=== PATIENT | female | born 1950 | race Caucasian/White ===

== ENCOUNTER 2019-11-05 11:48 | Inpatient (IN) | payer MEDICARE, OTHER ==
[~2019-11-05] VITALS: Ht 160 cm; Wt 61.8 kg
--- NOTE | 2019-11-05 12:30 | NUR ---
SPOKE WITH PT'S DTR OVER THE PHONE. SHE IS UNABLE TO PROVIDE A FULL HISTORY FOR THE PT STATING SHE WENT AND PICKED UP HER MOTHER IN [place] 10 MONTHS AGO BECAUSE SHE WAS UNABLE TO TAKE CARE OF HERSELF. DTR STATE'S PT HAS NOT HAD A DRINK IN 10 MONTHS. PT WAS A DAILY RUM DRINKER FOR DECADES. PT POSSIBLY WITH DIABETES. PT TAKING UNKNOWN BP MEDICATION. PT WAS AMBULATORY APPROX A MONTH AGO. PT HAS HAD MULTIPLE FALLS IN THE LAST COUPLE MONTHS PROMPTING DTR TO BUY WHEELCHAIR FOR PT. PT NEEDS ASSISTANCE WITH ALL ADL'S. PT SEEN TWICE AT [facility] IN THE PAST 3 WKS. PER DTR PT DC'D WITH PAIN RX FOR BACK PAIN.
[2019-11-05] MEDS ORDERED: SODIUM CHLORIDE FLUSH 10ML SYR IVF ONE (13:00)
[2019-11-05] MEDS ORDERED: PLEASE ENTER ALLERGIES MC SCH (13:00)
[2019-11-05 13:03] LABS: BASOPHILS # (AUTO) 0.04 x10^3/uL (0-0.1); BASOPHILS % (AUTO) 0 % (0-1); EOSINOPHILS # (AUTO) 0.11 x10^3/uL (0-0.4); EOSINOPHILS % (AUTO) 1 % (1-7); LYMPHOCYTES # (AUTO) 2.49 x10^3/uL (1-3.4); LYMPHOCYTES % (AUTO) 22 % (22-44); MD NO; MEAN CORPUSCULAR HEMOGLOBIN 29.4 pg (27.0-34.8); MEAN CORPUSCULAR HGB CONC 31.8 g/dL (32.4-35.8); MEAN CORPUSCULAR VOLUME 92.6 fL (80-100); MEAN PLATELET VOLUME 9.2 fL (7.4-10.4); MONOCYTES # (AUTO) 0.66 x10^3/uL (0.2-0.8); MONOCYTES % (AUTO) 6 % (2-9); NEUTROPHILS # (AUTO) 8.07 x10^3/uL (1.8-6.8); NEUTROPHILS % (AUTO) 71 % (42-75); PLATELET COUNT 224 x10^3/uL (130-400); RED BLOOD COUNT 4.74 x10^6/uL (3.82-5.3); RED CELL DISTRIBUTION WIDTH 14.9 % (9.6-15.2)
[2019-11-05 13:12] LABS: ALANINE AMINOTRANSFERASE 20 U/L (12-78); ALBUMIN 3.1 g/dL (3.4-5.0); ANION GAP 8 mmol/L (5-15); CALCIUM 9.1 mg/dL (8.5-10.1); CHLORIDE 114 mmol/L (98-107); CREATININE 0.83 mg/dL (0.55-1.02)
[2019-11-05 13:23] LABS: ALKALINE PHOSPHATASE 86 U/L (45-117); BILIRUBIN,TOTAL 0.5 mg/dL (0.2-1.0); TOTAL PROTEIN 7.1 g/dL (6.4-8.2)
--- NOTE | 2019-11-05 13:58 | NUR ---
PT INCONTINENT OF STOOL AND URINE. PT CLEANED, BARRIER PASTE APPLIED TO KINA AREA. PUREWICK PLACED FOR PT COMFORT. LINENS CHANGED WITH FAMILY ASSIST.
[2019-11-05] MEDS ORDERED: LEVETIRACETAM 500 MG in SODIUM CHLORIDE 0.9% 100 ML IV SCH ×2 (14:15→17:30)
[2019-11-05] MEDS ORDERED: DEXAMETHASONE 4 MG/ML, 1ML IVPush ONE ×2 (14:15→14:17)
[2019-11-05] MEDS ORDERED: DEXAMETHASONE 4 MG/ML, 1ML ONE (14:27)
[2019-11-05] MEDS ORDERED: LORazepam 2 MG/ML, 1ML ONE (14:28)
[2019-11-05] MEDS ORDERED: LORazepam 2 MG/ML, 1ML IVPush ONE (14:30)
[2019-11-05] MEDS ORDERED: GADOTERATE 7.5 MMOL/15 ML SYR ONE (15:11)
--- NOTE | 2019-11-05 15:30 | NUR ---
DTR AT BEDSIDE. NO ADDITIONAL MEDICAL HX NOTED FROM OUR EARLIER TELE CALL.
[2019-11-05] MEDS ORDERED: SODIUM CHLORIDE FLUSH 10ML SYR IVF PRN (16:30)
[2019-11-05 16:37] LABS: INTERNATIONAL NORMALIZED RATIO 0.98 (0.93-1.1); PROTHROMBIN TIME 10.1 Seconds (9.6-11.5)
[2019-11-05] MEDS ORDERED: D5%-0.45NACL+KCL 20MEQ 1,000 ML IV SCH (16:49)
[2019-11-05] MEDS ORDERED: LABETALOL 5MG/ML, 20ML IVPush PRN (17:00)
[2019-11-05] MEDS ORDERED: ENALAPRILAT 1.25 MG/ML, 2ML IVPush PRN (17:00)
[2019-11-05] MEDS ORDERED: METOCLOPRAMIDE 5 MG/ML, 2ML IVPush PRN (17:00)
[2019-11-05] MEDS ORDERED: ONDANSETRON 2MG/ML, 2ML IVPush PRN (17:00)
[2019-11-05] MEDS ORDERED: PROMETHAZINE 25 MG/ML, 1ML IM PRN (17:00)
[2019-11-05] MEDS ORDERED: MAGNESIUM SULFATE PMX 2GM/50ML 50 ML IV ONE (17:30)
[2019-11-05] MEDS: DEXAMETHASONE 4 MG/ML, 1ML IVPush SCH ×2 (18:29→23:55)
[2019-11-05] MEDS ORDERED: DEXAMETHASONE 4 MG/ML, 1ML IVPush SCH (20:30)
[2019-11-06] MEDS ORDERED: LEVETIRACETAM 500 MG in SODIUM CHLORIDE 0.9% 100 ML IV SCH (04:00)
[2019-11-06 04:41] LABS: ALBUMIN 3.3 g/dL (3.4-5.0); ANION GAP 7 mmol/L (5-15); CALCIUM 9.2 mg/dL (8.5-10.1); CHLORIDE 114 mmol/L (98-107)
[2019-11-06 04:46] LABS: ALANINE AMINOTRANSFERASE 20 U/L (12-78); ALKALINE PHOSPHATASE 89 U/L (45-117); BILIRUBIN,TOTAL 0.3 mg/dL (0.2-1.0); CREATININE 0.81 mg/dL (0.55-1.02); TOTAL PROTEIN 7.5 g/dL (6.4-8.2)
[2019-11-06] MEDS: DEXAMETHASONE 4 MG/ML, 1ML IVPush SCH (05:37)
[2019-11-06 06:25] LABS: BASOPHILS % (AUTO) 0 % (0-1); EOSINOPHILS % (AUTO) 0 % (1-7); LYMPHOCYTES # (AUTO) 1.39 x10^3/uL (1-3.4); LYMPHOCYTES % (AUTO) 15 % (22-44); MD NO; MEAN CORPUSCULAR HEMOGLOBIN 29.6 pg (27.0-34.8); MEAN CORPUSCULAR VOLUME 92.7 fL (80-100); MEAN PLATELET VOLUME 9.3 fL (7.4-10.4); MONOCYTES % (AUTO) 1 % (2-9); NEUTROPHILS % (AUTO) 83 % (42-75); PLATELET COUNT 191 x10^3/uL (130-400); RED BLOOD COUNT 4.81 x10^6/uL (3.82-5.3); RED CELL DISTRIBUTION WIDTH 14.8 % (9.6-15.2)
[2019-11-06] MEDS: THIAMINE 100MG TABLET PO SCH ×2 (09:22→21:33)
[2019-11-06] MEDS: DEXAMETHASONE 4 MG TABLET PO SCH ×2 (11:59→17:17)
[2019-11-06] MEDS: LEVETIRACETAM 500 MG TABLET PO SCH (16:08)
[2019-11-06 21:39] VITALS: BP 107/61
[2019-11-07 02:05] VITALS: BP 112/53
[2019-11-07 04:36] LABS: BASOPHILS # (AUTO) 0.02 x10^3/uL (0-0.1); BASOPHILS % (AUTO) 0 % (0-1); EOSINOPHILS % (AUTO) 0 % (1-7); LYMPHOCYTES # (AUTO) 1.38 x10^3/uL (1-3.4); LYMPHOCYTES % (AUTO) 10 % (22-44); MD NO; MEAN CORPUSCULAR VOLUME 90.9 fL (80-100); MEAN PLATELET VOLUME 9.6 fL (7.4-10.4); MONOCYTES # (AUTO) 0.22 x10^3/uL (0.2-0.8); MONOCYTES % (AUTO) 2 % (2-9); NEUTROPHILS # (AUTO) 11.69 x10^3/uL (1.8-6.8); NEUTROPHILS % (AUTO) 88 % (42-75); PLATELET COUNT 208 x10^3/uL (130-400); RED CELL DISTRIBUTION WIDTH 14.6 % (9.6-15.2)
[2019-11-07 04:46] LABS: ANION GAP 4 mmol/L (5-15); CALCIUM 8.7 mg/dL (8.5-10.1); CHLORIDE 109 mmol/L (98-107); CREATININE 0.74 mg/dL (0.55-1.02)
[2019-11-07] MEDS: LEVETIRACETAM 500 MG TABLET PO SCH ×2 (05:04→15:46)
[2019-11-07] MEDS: DEXAMETHASONE 4 MG TABLET PO SCH ×5 (06:37→23:23)
[2019-11-07 08:00] VITALS: BP 101/47
[2019-11-07] MEDS: THIAMINE 100MG TABLET PO SCH ×2 (09:50→20:07)
[2019-11-07 13:31] VITALS: BP 107/61
[2019-11-07 16:14] VITALS: BP 119/79
[2019-11-07 18:33] VITALS: BP 120/80
[2019-11-08 01:31] VITALS: BP 133/80
[2019-11-08] MEDS: LEVETIRACETAM 500 MG TABLET PO SCH ×2 (04:44→15:00)
[2019-11-08] MEDS: DEXAMETHASONE 4 MG TABLET PO SCH ×4 (04:46→23:43)
[2019-11-08 05:34] LABS: ANION GAP 7 mmol/L (5-15); CALCIUM 8.9 mg/dL (8.5-10.1); CHLORIDE 111 mmol/L (98-107); CREATININE 0.68 mg/dL (0.55-1.02)
[2019-11-08 05:42] LABS: BASOPHILS # (AUTO) 0.02 x10^3/uL (0-0.1); BASOPHILS % (AUTO) 0 % (0-1); EOSINOPHILS % (AUTO) 0 % (1-7); LYMPHOCYTES # (AUTO) 1.42 x10^3/uL (1-3.4); LYMPHOCYTES % (AUTO) 13 % (22-44); MD NO; MEAN CORPUSCULAR HEMOGLOBIN 29.6 pg (27.0-34.8); MEAN CORPUSCULAR HGB CONC 32.4 g/dL (32.4-35.8); MEAN CORPUSCULAR VOLUME 91.4 fL (80-100); MEAN PLATELET VOLUME 9.6 fL (7.4-10.4); MONOCYTES % (AUTO) 2 % (2-9); NEUTROPHILS # (AUTO) 8.96 x10^3/uL (1.8-6.8); NEUTROPHILS % (AUTO) 85 % (42-75); PLATELET COUNT 223 x10^3/uL (130-400); RED BLOOD COUNT 4.72 x10^6/uL (3.82-5.3); RED CELL DISTRIBUTION WIDTH 14.4 % (9.6-15.2)
[2019-11-08 06:53] VITALS: BP 114/70
[2019-11-08] MEDS: THIAMINE 100MG TABLET PO SCH ×2 (07:46→20:36)
[2019-11-08 12:04] VITALS: BP 114/77
[2019-11-08 18:35] VITALS: BP 126/74
[2019-11-09 01:19] VITALS: BP 117/71
[2019-11-09 05:05] LABS: BASOPHILS % (AUTO) 0 % (0-1); EOSINOPHILS % (AUTO) 0 % (1-7); LYMPHOCYTES # (AUTO) 1.71 x10^3/uL (1-3.4); LYMPHOCYTES % (AUTO) 15 % (22-44); MD NO; MEAN CORPUSCULAR HEMOGLOBIN 29.7 pg (27.0-34.8); MEAN CORPUSCULAR HGB CONC 32.6 g/dL (32.4-35.8); MEAN CORPUSCULAR VOLUME 91.2 fL (80-100); MEAN PLATELET VOLUME 9.8 fL (7.4-10.4); MONOCYTES # (AUTO) 0.38 x10^3/uL (0.2-0.8); MONOCYTES % (AUTO) 3 % (2-9); NEUTROPHILS # (AUTO) 9.21 x10^3/uL (1.8-6.8); NEUTROPHILS % (AUTO) 82 % (42-75); PLATELET COUNT 235 x10^3/uL (130-400); RED BLOOD COUNT 5.12 x10^6/uL (3.82-5.3); RED CELL DISTRIBUTION WIDTH 14.6 % (9.6-15.2)
[2019-11-09 05:09] LABS: ALANINE AMINOTRANSFERASE 22 U/L (12-78); ALBUMIN 3.4 g/dL (3.4-5.0); ANION GAP 7 mmol/L (5-15); CALCIUM 9.4 mg/dL (8.5-10.1); CHLORIDE 109 mmol/L (98-107)
[2019-11-09 05:12] LABS: ALKALINE PHOSPHATASE 81 U/L (45-117); BILIRUBIN,TOTAL 0.5 mg/dL (0.2-1.0); CREATININE 0.74 mg/dL (0.55-1.02); TOTAL PROTEIN 7.6 g/dL (6.4-8.2)
[2019-11-09] MEDS: LEVETIRACETAM 500 MG TABLET PO SCH ×2 (05:19→17:46)
[2019-11-09] MEDS: DEXAMETHASONE 4 MG TABLET PO SCH ×3 (05:25→17:46)
[2019-11-09 06:32] VITALS: BP 132/85
[2019-11-09] MEDS: THIAMINE 100MG TABLET PO SCH (07:42)
[2019-11-09] MEDS ORDERED: GADOTERATE 7.5 MMOL/15 ML VIAL ONE (09:26)
[2019-11-09] MEDS ORDERED: MANNITOL PMX 20% 500 ML ONE (11:12)
[2019-11-09] MEDS ORDERED: FUROSEMIDE 20 MG/2 ML ONE ×2 (11:47→13:24)
[2019-11-09] MEDS ORDERED: FENTANYL PF 250 MCG/5ML ONE (12:10)
[2019-11-09] MEDS ORDERED: PROPOFOL 10 MG/ML, 20ML ONE (12:11)
[2019-11-09] MEDS ORDERED: ROCURONIUM 10MG/ML,5ML ONE ×2 (12:11→14:07)
[2019-11-09] MEDS ORDERED: THROMBIN 20,000 UNIT VIAL TP ONE (12:21)
[2019-11-09] MEDS ORDERED: BACITRACIN 50,000 UNIT ONE (12:21)
[2019-11-09] MEDS ORDERED: BUPIVACAINE/PF-EPI 0.5% 1:200K ONE (12:21)
[2019-11-09] MEDS ORDERED: CHLORHEXIDINE 15 ML UDC ONE (12:26)
[2019-11-09] MEDS ORDERED: CHLORHEXIDINE 15 ML UDC MM ONE (12:30)
[2019-11-09] MEDS ORDERED: CEFAZOLIN 1,000 MG ONE ×2 (12:59)
[2019-11-09] MEDS ORDERED: DEXAMETHASONE 4 MG/ML, 1ML ONE ×2 (13:31)
[2019-11-09] MEDS ORDERED: PHENYLEPHRINE 10 MG/ML ONE (13:41)
[2019-11-09] MEDS ORDERED: LABETALOL 5MG/ML, 20ML ONE (14:20)
[2019-11-09] MEDS ORDERED: ONDANSETRON 2MG/ML, 2ML ONE (15:44)
[2019-11-09] MEDS ORDERED: morphine SULFATE 10 MG/ML, 1ML IVPush PRN (16:00)
[2019-11-09] MEDS ORDERED: HYDROmorphone 1 MG/ML, 1ML INJ IVPush PRN (16:00)
[2019-11-09] MEDS ORDERED: FENTANYL PF 100 MCG/2ML IV PRN (16:00)
[2019-11-09] MEDS ORDERED: hydrALAzine 20 MG/ML, 1ML IV PRN ×2 (16:00→17:30)
[2019-11-09] MEDS ORDERED: LABETALOL 5MG/ML, 20ML IV PRN ×2 (16:00→18:00)
[2019-11-09] MEDS ORDERED: OXYcodone 5 MG/5 ML ORAL.SOL UDC PO PRN (16:00)
[2019-11-09] MEDS ORDERED: PROMETHAZINE 25 MG/ML, 1ML IVPush PRN (16:00)
[2019-11-09] MEDS ORDERED: ONDANSETRON 2MG/ML, 2ML IVPush PRN (16:00)
[2019-11-09] MEDS: ENALAPRILAT 1.25 MG/ML, 2ML IV SCH ×2 (17:30→21:47)
[2019-11-09] MEDS ORDERED: BISACODYL 10 MG SUPP PR PRN (18:00)
[2019-11-09] MEDS ORDERED: HYDROmorphone 2 MG/ML, 1ML IV PRN (18:00)
[2019-11-09] MEDS ORDERED: ONDANSETRON 2MG/ML, 2ML IV PRN (18:00)
[2019-11-09] MEDS ORDERED: MAGNESIUM HYDROXIDE 8%, 30ML UDC PO PRN (18:00)
[2019-11-09] MEDS ORDERED: DEXAMETHASONE 4 MG/ML, 1ML IV SCH (18:00)
[2019-11-09] MEDS: NS + 20MEQ KCL 1,000 ML IV SCH (18:40)
[2019-11-09] MEDS: CEFAZOLIN PMX 1GM/50ML 50 ML IVPB SCH (21:45)
[2019-11-10] MEDS: HYDROcodone/APAP 5/325 TABLET PO PRN ×2 (00:19→12:38)
[2019-11-10] MEDS: DEXAMETHASONE 4 MG TABLET PO SCH ×2 (00:19)
[2019-11-10] MEDS: DEXAMETHASONE 4 MG/ML, 1ML IVPush SCH ×4 (01:15→20:19)
[2019-11-10] MEDS: ENALAPRILAT 1.25 MG/ML, 2ML IV SCH ×6 (01:30→20:20)
[2019-11-10 04:00] VITALS: BP 100/44
[2019-11-10] MEDS: LEVETIRACETAM 500 MG in SODIUM CHLORIDE 0.9% 100 ML IV SCH ×2 (04:53→16:00)
[2019-11-10 05:28] LABS: MEAN CORPUSCULAR HEMOGLOBIN 30.2 pg (27.0-34.8); MEAN CORPUSCULAR HGB CONC 33.1 g/dL (32.4-35.8); MEAN CORPUSCULAR VOLUME 91.2 fL (80-100); MEAN PLATELET VOLUME 9.6 fL (7.4-10.4); PLATELET COUNT 245 x10^3/uL (130-400); RED BLOOD COUNT 3.45 x10^6/uL (3.82-5.3); RED CELL DISTRIBUTION WIDTH 14.7 % (9.6-15.2)
[2019-11-10] MEDS: CEFAZOLIN PMX 1GM/50ML 50 ML IVPB SCH (05:43)
[2019-11-10 06:01] LABS: BASOPHILS # (AUTO) 0.02 x10^3/uL (0-0.1); BASOPHILS % (AUTO) 0 % (0-1); EOSINOPHILS # (AUTO) 0.01 x10^3/uL (0-0.4); EOSINOPHILS % (AUTO) 0 % (1-7); LYMPHOCYTES % (AUTO) 7 % (22-44); MD SCAN; MONOCYTES # (AUTO) 0.41 x10^3/uL (0.2-0.8); MONOCYTES % (AUTO) 2 % (2-9); NEUTROPHILS # (AUTO) 18.68 x10^3/uL (1.8-6.8); NEUTROPHILS % (AUTO) 91 % (42-75)
[2019-11-10] MEDS: NS + 20MEQ KCL 1,000 ML IV SCH (09:14)
[2019-11-10 10:28] LABS: ANION GAP 5 mmol/L (5-15); CALCIUM 7.5 mg/dL (8.5-10.1); CHLORIDE 118 mmol/L (98-107); CREATININE 0.55 mg/dL (0.55-1.02)
[2019-11-10] MEDS: SENNA/DOCUSATE TABLET PO SCH (12:33)
--- NOTE | 2019-11-10 15:29 | NUR ---
REC: ANDREASU Addendum: 11/10/19 at 1530 by Vivian REINOSO Amended: Links added.
[2019-11-10] MEDS ORDERED: SODIUM CHLORIDE 0.9% 1,000ML IVBOLUS ONE (21:30)
[2019-11-11] MEDS: NS + 20MEQ KCL 1,000 ML IV SCH ×2 (00:59→14:21)
[2019-11-11] MEDS: ENALAPRILAT 1.25 MG/ML, 2ML IV SCH ×6 (00:59→21:30)
[2019-11-11] MEDS: DEXAMETHASONE 4 MG/ML, 1ML IVPush SCH ×4 (02:20→20:08)
[2019-11-11] MEDS: LEVETIRACETAM 500 MG in SODIUM CHLORIDE 0.9% 100 ML IV SCH ×2 (04:13→16:39)
[2019-11-11 04:27] LABS: BASOPHILS # (AUTO) 0.03 x10^3/uL (0-0.1); BASOPHILS % (AUTO) 0 % (0-1); EOSINOPHILS # (AUTO) 0.08 x10^3/uL (0-0.4); EOSINOPHILS % (AUTO) 1 % (1-7); LYMPHOCYTES # (AUTO) 1.64 x10^3/uL (1-3.4); LYMPHOCYTES % (AUTO) 11 % (22-44); MD NO; MEAN CORPUSCULAR HEMOGLOBIN 29.8 pg (27.0-34.8); MEAN CORPUSCULAR HGB CONC 32.8 g/dL (32.4-35.8); MEAN CORPUSCULAR VOLUME 90.8 fL (80-100); MEAN PLATELET VOLUME 9.1 fL (7.4-10.4); MONOCYTES # (AUTO) 0.86 x10^3/uL (0.2-0.8); MONOCYTES % (AUTO) 6 % (2-9); NEUTROPHILS # (AUTO) 11.97 x10^3/uL (1.8-6.8); NEUTROPHILS % (AUTO) 82 % (42-75); PLATELET COUNT 167 x10^3/uL (130-400); RED BLOOD COUNT 2.72 x10^6/uL (3.82-5.3); RED CELL DISTRIBUTION WIDTH 14.7 % (9.6-15.2)
[2019-11-11 04:33] LABS: ANION GAP 6 mmol/L (5-15); CALCIUM 7.7 mg/dL (8.5-10.1); CHLORIDE 115 mmol/L (98-107); CREATININE 0.46 mg/dL (0.55-1.02)
[2019-11-11 05:00] VITALS: BP 112/60
[2019-11-11] MEDS: SENNA/DOCUSATE TABLET PO SCH (08:25)
[2019-11-11] MEDS ORDERED: ACETAMINOPHEN 650 MG/20.3 ML UDC ONE (10:01)
[2019-11-11 13:15] VITALS: BP 121/68
[2019-11-11] MEDS: HYDROcodone/APAP 5/325 TABLET PO PRN (14:21)
[2019-11-11 16:48] VITALS: BP 153/71
[2019-11-11 21:41] VITALS: BP 102/62
[2019-11-11 23:41] VITALS: BP 119/69
[2019-11-11 23:54] VITALS: BP 129/74
[2019-11-12] VITALS (7 sets, daily range): BP systolic 104–150; BP diastolic 67–78
[2019-11-12] MEDS: DEXAMETHASONE 4 MG/ML, 1ML IVPush SCH ×4 (02:22→20:22)
[2019-11-12] MEDS: ENALAPRILAT 1.25 MG/ML, 2ML IV SCH ×6 (02:25→22:20)
[2019-11-12] MEDS: NS + 20MEQ KCL 1,000 ML IV SCH ×2 (04:00→18:09)
[2019-11-12] MEDS: LEVETIRACETAM 500 MG in SODIUM CHLORIDE 0.9% 100 ML IV SCH ×2 (04:00→16:06)
[2019-11-12 05:44] LABS: MEAN CORPUSCULAR HEMOGLOBIN 30.5 pg (27.0-34.8); MEAN CORPUSCULAR HGB CONC 33.6 g/dL (32.4-35.8); MEAN CORPUSCULAR VOLUME 90.6 fL (80-100); MEAN PLATELET VOLUME 9.2 fL (7.4-10.4); PLATELET COUNT 169 x10^3/uL (130-400); RED BLOOD COUNT 2.86 x10^6/uL (3.82-5.3); RED CELL DISTRIBUTION WIDTH 14.5 % (9.6-15.2)
[2019-11-12 05:47] LABS: ANION GAP 5 mmol/L (5-15); CALCIUM 8.4 mg/dL (8.5-10.1); CHLORIDE 110 mmol/L (98-107); CREATININE 0.46 mg/dL (0.55-1.02)
[2019-11-12 06:45] LABS: BASOPHILS # (AUTO) 0.12 x10^3/uL (0-0.1); BASOPHILS % (AUTO) 1 % (0-1); EOSINOPHILS % (AUTO) 0 % (1-7); LYMPHOCYTES # (AUTO) 1.58 x10^3/uL (1-3.4); LYMPHOCYTES % (AUTO) 8 % (22-44); MD SCAN; MONOCYTES # (AUTO) 0.58 x10^3/uL (0.2-0.8); MONOCYTES % (AUTO) 3 % (2-9); NEUTROPHILS # (AUTO) 16.59 x10^3/uL (1.8-6.8); NEUTROPHILS % (AUTO) 88 % (42-75)
[2019-11-12] MEDS: SENNA/DOCUSATE TABLET PO SCH (08:49)
[2019-11-13 00:15] VITALS: BP 106/62
[2019-11-13] MEDS: ENALAPRILAT 1.25 MG/ML, 2ML IV SCH ×6 (01:30→21:30)
[2019-11-13] MEDS: DEXAMETHASONE 4 MG/ML, 1ML IVPush SCH ×4 (02:27→20:13)
[2019-11-13] MEDS: LEVETIRACETAM 500 MG in SODIUM CHLORIDE 0.9% 100 ML IV SCH ×2 (04:09→16:02)
[2019-11-13 05:00] VITALS: BP 108/72
[2019-11-13 07:10] LABS: ANION GAP 4 mmol/L (5-15); CHLORIDE 114 mmol/L (98-107)
[2019-11-13 07:11] LABS: CREATININE 0.41 mg/dL (0.55-1.02); MEAN CORPUSCULAR HEMOGLOBIN 29.8 pg (27.0-34.8); MEAN CORPUSCULAR HGB CONC 31.9 g/dL (32.4-35.8); MEAN CORPUSCULAR VOLUME 93.2 fL (80-100); MEAN PLATELET VOLUME 8.7 fL (7.4-10.4); PLATELET COUNT 209 x10^3/uL (130-400); RED BLOOD COUNT 2.84 x10^6/uL (3.82-5.3); RED CELL DISTRIBUTION WIDTH 15.6 % (9.6-15.2)
[2019-11-13 07:14] VITALS: BP 117/61
[2019-11-13 08:29] LABS: BASOPHILS # (AUTO) 0.02 x10^3/uL (0-0.1); BASOPHILS % (AUTO) 0 % (0-1); EOSINOPHILS % (AUTO) 0 % (1-7); LYMPHOCYTES # (AUTO) 1.24 x10^3/uL (1-3.4); LYMPHOCYTES % (AUTO) 8 % (22-44); MD SCAN; MONOCYTES # (AUTO) 0.25 x10^3/uL (0.2-0.8); MONOCYTES % (AUTO) 2 % (2-9); NEUTROPHILS # (AUTO) 13.17 x10^3/uL (1.8-6.8); NEUTROPHILS % (AUTO) 90 % (42-75)
[2019-11-13] MEDS: NS + 20MEQ KCL 1,000 ML IV SCH ×2 (08:46→21:19)
[2019-11-13] MEDS: SENNA/DOCUSATE TABLET PO SCH (08:47)
[2019-11-13 13:15] VITALS: BP 115/68
[2019-11-13 17:15] VITALS: BP 124/75
[2019-11-13] MEDS: HYDROcodone/APAP 5/325 TABLET PO PRN (17:48)
[2019-11-13 19:26] VITALS: BP 116/65
[2019-11-14 00:26] VITALS: BP 130/72
[2019-11-14] MEDS: ENALAPRILAT 1.25 MG/ML, 2ML IV SCH ×6 (02:16→23:39)
[2019-11-14] MEDS: DEXAMETHASONE 4 MG/ML, 1ML IVPush SCH ×4 (02:17→23:38)
[2019-11-14] MEDS: LEVETIRACETAM 500 MG in SODIUM CHLORIDE 0.9% 100 ML IV SCH ×2 (04:05→17:32)
[2019-11-14 06:04] LABS: ANION GAP 6 mmol/L (5-15); CALCIUM 8.2 mg/dL (8.5-10.1); CHLORIDE 110 mmol/L (98-107)
[2019-11-14 06:05] LABS: CREATININE 0.49 mg/dL (0.55-1.02)
[2019-11-14 06:09] LABS: MEAN CORPUSCULAR HEMOGLOBIN 30.3 pg (27.0-34.8); MEAN CORPUSCULAR HGB CONC 33.2 g/dL (32.4-35.8); MEAN CORPUSCULAR VOLUME 91.4 fL (80-100); MEAN PLATELET VOLUME 8.8 fL (7.4-10.4); PLATELET COUNT 217 x10^3/uL (130-400); RED CELL DISTRIBUTION WIDTH 14.8 % (9.6-15.2)
[2019-11-14 06:49] LABS: BASOPHILS # (AUTO) 0.01 x10^3/uL (0-0.1); BASOPHILS % (AUTO) 0 % (0-1); EOSINOPHILS # (AUTO) 0.19 x10^3/uL (0-0.4); EOSINOPHILS % (AUTO) 1 % (1-7); LYMPHOCYTES # (AUTO) 1.19 x10^3/uL (1-3.4); LYMPHOCYTES % (AUTO) 6 % (22-44); MD SCAN; MONOCYTES # (AUTO) 0.65 x10^3/uL (0.2-0.8); MONOCYTES % (AUTO) 3 % (2-9); NEUTROPHILS # (AUTO) 18.74 x10^3/uL (1.8-6.8); NEUTROPHILS % (AUTO) 90 % (42-75)
[2019-11-14 07:42] VITALS: BP 111/65
[2019-11-14] MEDS: SENNA/DOCUSATE TABLET PO SCH (09:00)
[2019-11-14 14:16] VITALS: BP 132/82
[2019-11-14] MEDS: NS + 20MEQ KCL 1,000 ML IV SCH (14:43)
[2019-11-14 19:46] VITALS: BP 138/72
[2019-11-15 01:53] VITALS: BP 132/71
[2019-11-15] MEDS: ENALAPRILAT 1.25 MG/ML, 2ML IV SCH ×2 (04:09→08:16)
[2019-11-15] MEDS: LEVETIRACETAM 500 MG in SODIUM CHLORIDE 0.9% 100 ML IV SCH (04:09)
[2019-11-15] MEDS: NS + 20MEQ KCL 1,000 ML IV SCH (04:09)
[2019-11-15 06:02] LABS: MEAN CORPUSCULAR HEMOGLOBIN 30.7 pg (27.0-34.8); MEAN CORPUSCULAR HGB CONC 33.5 g/dL (32.4-35.8); MEAN CORPUSCULAR VOLUME 91.7 fL (80-100); MEAN PLATELET VOLUME 8.2 fL (7.4-10.4); PLATELET COUNT 249 x10^3/uL (130-400); RED CELL DISTRIBUTION WIDTH 15.3 % (9.6-15.2)
[2019-11-15 06:13] LABS: ANION GAP 7 mmol/L (5-15); CALCIUM 8.4 mg/dL (8.5-10.1); CHLORIDE 109 mmol/L (98-107); CREATININE 0.57 mg/dL (0.55-1.02)
[2019-11-15 06:30] LABS: BASOPHILS % (AUTO) 0 % (0-1); EOSINOPHILS # (AUTO) 0.22 x10^3/uL (0-0.4); EOSINOPHILS % (AUTO) 1 % (1-7); LYMPHOCYTES # (AUTO) 1.59 x10^3/uL (1-3.4); LYMPHOCYTES % (AUTO) 8 % (22-44); MD SCAN; MONOCYTES # (AUTO) 0.55 x10^3/uL (0.2-0.8); MONOCYTES % (AUTO) 3 % (2-9); NEUTROPHILS # (AUTO) 16.84 x10^3/uL (1.8-6.8); NEUTROPHILS % (AUTO) 88 % (42-75)
[2019-11-15 07:46] VITALS: BP 145/83
[2019-11-15] MEDS: DEXAMETHASONE 4 MG/ML, 1ML IVPush SCH (08:16)
[2019-11-15] MEDS: SENNA/DOCUSATE TABLET PO SCH (08:16)
[2019-11-15 13:51] VITALS: BP 139/69
[2019-11-15] MEDS: LISINOPRIL 10 MG TABLET PO SCH (13:56)
[2019-11-15] MEDS: DEXAMETHASONE 4 MG TABLET PO SCH (17:11)
[2019-11-15 20:01] VITALS: BP 139/79
[2019-11-15] MEDS: LEVETIRACETAM 500 MG TABLET PO SCH (21:30)
[2019-11-15] MEDS: ACETAMINOPHEN 325 MG TABLET PO PRN (21:30)
[2019-11-16] MEDS: DEXAMETHASONE 4 MG TABLET PO SCH ×4 (00:06→20:20)
[2019-11-16 00:29] VITALS: BP 132/79
[2019-11-16 07:13] LABS: MEAN CORPUSCULAR HEMOGLOBIN 30.3 pg (27.0-34.8); MEAN CORPUSCULAR HGB CONC 32.3 g/dL (32.4-35.8); MEAN PLATELET VOLUME 7.5 fL (7.4-10.4); PLATELET COUNT 247 x10^3/uL (130-400); RED BLOOD COUNT 3.01 x10^6/uL (3.82-5.3); RED CELL DISTRIBUTION WIDTH 15.5 % (9.6-15.2)
[2019-11-16 07:18] LABS: ANION GAP 4 mmol/L (5-15); CALCIUM 8.6 mg/dL (8.5-10.1); CHLORIDE 107 mmol/L (98-107); CREATININE 0.58 mg/dL (0.55-1.02)
[2019-11-16 07:26] LABS: MD YES
[2019-11-16 07:27] LABS: <PLATELET ESTIMATE> ADEQUATE; <PLT MORPHOLOGY> NORMAL PLT MORPH; ANISOCYTOSIS 1+; BANDS%(MANUAL) 1 % (0-7); LYMPHS% (MANUAL) 2 % (22-44); METAMYELOCYTES% (MANUAL) 1 % (0-1); MONOS#(MANUAL) 1.01 x10^3/uL (0.3-2.7); MONOS% (MANUAL) 5 % (2-9); PMNS WITH VACUOLES 1+; POLYCHROMASIA 1+; SEG#(MANUAL) 18.29 x10^3/uL (1.8-6.8); SEGS% (MANUAL) 91 % (42-75)
[2019-11-16 07:41] VITALS: BP 93/63
[2019-11-16] MEDS: LISINOPRIL 10 MG TABLET PO SCH (07:51)
[2019-11-16] MEDS: SENNA/DOCUSATE TABLET PO SCH (07:52)
[2019-11-16] MEDS: LEVETIRACETAM 500 MG TABLET PO SCH ×2 (07:52→20:20)
[2019-11-16 13:16] VITALS: BP 101/59
[2019-11-16] MEDS ORDERED: ALUMINUM/MAG/SIMETHICONE 30 ML UDC PO PRN (17:00)
[2019-11-16] MEDS ORDERED: CALCIUM CARBONATE 500 MG TAB.CHEW PO PRN (17:00)
[2019-11-16 19:52] VITALS: BP 150/80
[2019-11-16] MEDS: ACETAMINOPHEN 325 MG TABLET PO PRN (20:20)
[2019-11-17 00:50] VITALS: BP 114/70
[2019-11-17] MEDS: DEXAMETHASONE 4 MG TABLET PO SCH ×3 (02:22→15:23)
[2019-11-17 05:59] LABS: MEAN CORPUSCULAR HEMOGLOBIN 30.8 pg (27.0-34.8); MEAN CORPUSCULAR VOLUME 93.2 fL (80-100); MEAN PLATELET VOLUME 8.1 fL (7.4-10.4); PLATELET COUNT 230 x10^3/uL (130-400); RED CELL DISTRIBUTION WIDTH 16.1 % (9.6-15.2)
[2019-11-17 06:06] LABS: ANION GAP 9 mmol/L (5-15); CALCIUM 8.3 mg/dL (8.5-10.1); CHLORIDE 108 mmol/L (98-107); CREATININE 0.45 mg/dL (0.55-1.02)
[2019-11-17 06:49] LABS: MD YES
[2019-11-17 06:51] LABS: BAND#(MANUAL) 0.44 x10^3/uL; BANDS%(MANUAL) 2 % (0-7); LYMPH#(MANUAL) 1.11 x10^3/uL (1-3.4); LYMPHS% (MANUAL) 5 % (22-44); MONOS#(MANUAL) 0.44 x10^3/uL (0.3-2.7); MONOS% (MANUAL) 2 % (2-9); SEG#(MANUAL) 20.11 x10^3/uL (1.8-6.8); SEGS% (MANUAL) 91 % (42-75)
[2019-11-17 06:52] LABS: <PLATELET ESTIMATE> ADEQUATE; <PLT MORPHOLOGY> NORMAL PLT MORPH; ANISOCYTOSIS 1+; POLYCHROMASIA 1+
[2019-11-17 08:08] VITALS: BP 115/69
[2019-11-17] MEDS: SENNA/DOCUSATE TABLET PO SCH (09:00)
[2019-11-17] MEDS: LISINOPRIL 10 MG TABLET PO SCH (09:09)
[2019-11-17] MEDS: LEVETIRACETAM 500 MG TABLET PO SCH (09:09)
[2019-11-17] MEDS ORDERED: LISI-167 PO (11:08)
[2019-11-17] MEDS ORDERED: DEXA4TAB66 PO (11:08)
[2019-11-17] MEDS ORDERED: LEVE500T53 PO (11:08)
[2019-11-17 14:21] VITALS: BP 97/65
== END 2019-11-17 15:57 | DRG 25 ==
LOC: ED 12:33 → EDIP 16:08 → CCU 18:00 → 4WST 11-07 13:23 → CCU 11-09 17:10 → 4NE 11-11 12:20
PROVIDERS: ADMIT Internal Medicine; ATTEND Hospitalist
PROC: 04HY32Z Insertion of Monitoring Device into Lower Artery, Percutaneous Approach (ICD-10-PCS; 2019-11-09)
PROC: 00B10ZZ Excision of Cerebral Meninges, Open Approach (ICD-10-PCS; principal; 2019-11-09 12:30)
DX: D32.0 Benign neoplasm of cerebral meninges (principal); G93.6 Cerebral edema; G93.41 Metabolic encephalopathy; E87.0 Hyperosmolality and hypernatremia; E46 Unspecified protein-calorie malnutrition; G81.94 Hemiplegia, unspecified affecting left nondominant side; D72.829 Elevated white blood cell count, unspecified; R62.7 Adult failure to thrive; R13.10 Dysphagia, unspecified; R32 Unspecified urinary incontinence; R94.31 Abnormal electrocardiogram [ECG] [EKG]; Z20.828 Contact with and (suspected) exposure to other viral communicable diseases; Z68.24 Body mass index [BMI] 24.0-24.9, adult; T38.0X5A Adverse effect of glucocorticoids and synthetic analogues, initial encounter; Z66 Do not resuscitate; Z79.899 Other long term (current) drug therapy
CPT/HCPCS: 36415; 70450; 70551; 70553; 71045; 74230; 80048; 80053; 83735; 84100; 84145; 84443; 85025; 85347; 85384; 85576; 85610; 85730; 87081; 87635; 88307; 88331; 93005; 93306; 96374; 96375; C1713; G0378; J0690; J1100; J1170; J1953; J2405; J2704; J3010; J3480; 92523-GN; A4648; A9575; C1781; J1940; J2060; J2370; J3475; J7030

== ENCOUNTER → 2020-10-08 | Outpatient (CLI) | payer MEDICARE ==
[~2020-10-08] MED LIST: DEXA4TAB66 PO; GADOTERATE 5 MMOL/10ML SYR ONE; LEVE500T53 PO; LISI-167 PO
== END | disposition home or self-care (01) ==
LOC: CFH 11:49
PROVIDERS: ATTEND Nurse Practitioner
DX: D32.0 Benign neoplasm of cerebral meninges (principal)
CPT/HCPCS: 70553; A9575